=== PATIENT | female | born 1995 | race Caucasian/White ===

== ENCOUNTER → 2021-10-28 13:06 | Outpatient (CLI) | payer OTHER, MEDICAID, SELFPAY ==
--- NOTE | 2021-10-28 | DI.US.S_ITS ---
PROCEDURE: US PELVIC COMPLETE INDICATIONS: DYSMENORRHEA TECHNIQUE: Real-time scanning was performed of the pelvic organs, with image documentation. Additional endovaginal scanning was necessary due to incomplete visualization of the adnexal and endometrial structures by transabdominal scanning. COMPARISON: None. FINDINGS: Uterus: Uterus is anteverted and normal in size at 7.7 x 4.3 x 2.8 cm. The myometrium is homogeneous. The endometrium measures 0.7 mm combined thickness. Ovaries: The right ovary measures 2.8 x 2.6 x 1.3 cm, The left ovary measures 2.8 x 1.5 x 1.1 cm,. The ovaries have a normal sonographic appearance. Less than 12 follicles can be seen in each ovary. No adnexal masses are seen. There is irregular urinary bladder thickening incidentally noted without vascularity Other: No pathologic free abdominal or pelvic fluid. IMPRESSION: 1. Unremarkable ultrasound the pelvis 2. Incidental irregular thickening of the urinary bladder wall. Consider further imaging workup with contrast CT pelvis or dedicated ultrasound. Approved by: Chuck Nunn M.D. on 10/28/2021 at 16:18
== END ==
PROVIDERS: PCP Physician Assistant; Referring Provider Physician Assistant; Visit Provider Physician Assistant
DX: N94.6 Dysmenorrhea, unspecified (principal)
CPT/HCPCS: 76830; 76856

== ENCOUNTER 2021-11-11 19:14 | Emergency (ER) | payer OTHER, MEDICAID, SELFPAY ==
[2021-11-11 19:26] VITALS: BP 120/65; PULSE 83; RESP 16; TEMP 36.9; O2SAT 99; BMI 26.5
[2021-11-11 23:09] LABS: Add Manual Diff / Slide Review NO; Basophils Absolute Auto 0 /uL (0-100); Basophils Percent Auto 0.7 % (0-2); Eosinophils Absolute Auto 100 /uL (0-450); Eosinophils Percent Auto 1.4 % (2-4); Hematocrit 40.8 % (36-46); Hemoglobin 14.6 g/dL (12.0-16.0); Lymphocytes Absolute Auto 2700 /uL (1100-4500); Lymphocytes Percent Auto 47.5 % (25-40); Mean Corpuscular HGB Conc 35.7 % (30-36); Mean Corpuscular Hemoglobin 31.4 PG (26-34); Mean Corpuscular Volume 87.8 fL (80-100); Monocytes Absolute Auto 500 /uL (0-900); Monocytes Percent Auto 8.4 % (3-14); Neutrophils Absolute Auto 2400 /uL (1500-7000); Platelet Count 174 X10^3/uL (150-400); Red Blood Cell Count 4.65 X10^6/uL (4.0-5.2); White Blood Cell Count 5.7 X10^3/uL (4.5-11.0)
[2021-11-11 23:18] LABS: Alanine Aminotransferase 12 IU/L (<35); Albumin 4.5 g/dL (3.5-5.0); Albumin Globulin Ratio 1.6 (1.0-2.8); Alkaline Phosphatase 33 U/L (38-126); Aspartate Aminotransferase 23 IU/L (14-36); BUN Creatinine Ratio 16.1 (6-22); Bilirubin Total 0.7 mg/dL (0.2-1.3); Blood Urea Nitrogen 9 mg/dL (7-17); Calcium 9.3 mg/dL (8.4-10.2); Carbon Dioxide 26 mmol/L (22-32); Chloride 109 mmol/L (98-107); Estimated Glomerular Filt Rate > 60.0 mL/min (>60); Globulin 2.9 g/dL (1.7-4.1); Glucose 95 mg/dL (70-100); HEMOLYSIS 22 (0-50); Lipase 79 U/L (23-300); Sodium 140 mmol/L (137-145); Total Protein 7.4 g/dL (6.3-8.2)
[2021-11-11 23:27] LABS: Bacteria Urine Few (2-10); Culture Indicated Urine Cult Not Indicated; RBC Urine None Seen (0-5/HPF); Squamous Epithelial Cell Urine 1-5 /HPF (0-5/HPF); WBC Urine 0-1/HPF (0-5/HPF)
[2021-11-12] VITALS (9 sets, daily range): BP systolic 95–97; BP diastolic 55–63; PULSE 62–87; RESP 19; O2SAT 76–100
[2021-11-12] MEDS: ACETAMINOPHEN 325 MG TABLET 650 MG PO (02:10)
--- NOTE | 2021-11-12 02:41 | PC.NURSE ---
1350 pt c/o headache, reported to dr. woods, order of tylenol rec'd and provided.
--- NOTE | 2021-11-12 02:42 | ED.GENADULT ---
HPI - General Adult General Chief complaint: Abdominal Pain Stated complaint: STOMACH ISSUES,7DAYS,SENT BY [facility] Time Seen by Provider: 11/12/21 02:42 Source: patient Mode of arrival: Ambulatory History of Present Illness HPI narrative: 25-year-old woman with long history of GI issues and control issues. She recently had an issue with NuvaRing and while she was working through this issue with her doctor she had some abnormal bleeding. She feels that that seems to be normalizing. She notes that she frequently has mild abdominal pain and last year had a complete gastrointestinal workup including upper and lower endoscopies that showed some inflammation but no obvious abnormalities. She is gluten intolerance avoids lactose and has been begin for 5 years. She is having regular bowel movements, no fevers or vomiting. Over the last 4 days she has had increasing lower abdominal/pelvic pain. She does not describe any vaginal discharge or dysuria. Approximately 2 weeks ago she was concerned that she had a bladder infection took 4 doses of nitrofurantoin felt that the urinary symptoms were improving but GI symptoms were getting worse. It turns out that nitrofurantoin has lactose components in it. Pelvic ultrasound was done on October 28 that was unremarkable with normal ovaries. Related Data Home Medications Medication Instructions Recorded Confirmed dextroamphetamine-amphetamine 30 30 mg PO DAILY 11/11/21 11/11/21 mg tablet etonogestrel 0.12 mg-ethinyl vag ring VAGINAL 11/11/21 estradiol 0.015 mg/24 hr vaginal ring (EluRyng) Previous Rx's Medication Instructions Recorded dicyclomine 10 mg capsule 10 mg PO TID PRN #20 cap 11/12/21 Allergies Allergy/AdvReac Type Severity Reaction Status Date / Time gluten Allergy Abdominal Verified 11/11/21 19:31 Pain lactose Allergy Abdominal Verified 11/11/21 19:31 Pain Patient History Social History Smoking Status: Never smoker Smoking Status: Never smoker alcohol intake frequency: other Substance Use Type: does not use Exam Initial Vital Signs Initial Vital Signs: Vital Signs Temperature 98.4 F 11/11/21 19:26 Pulse Rate 83 11/11/21 19:26 Respiratory Rate 16 11/11/21 19:26 Blood Pressure 120/65 11/11/21 19:26 Pulse Oximetry 99 11/11/21 19:26 Course Orders Ordered: ED Orders 11/11/21 22:49 Complete Blood Count AUTO DIFF Stat Comprehensive Metabolic Panel Stat Lipase Stat 11/11/21 23:11 Urine Microscopic Stat 11/12/21 03:13 CT abdomen pelvis w con Stat Acetaminophen (Acetaminophen 325 Mg Tablet) 650 mg PO Q4HR PRN PRN Reason: Fever/Mild Pain (1-3) Last Admin: 11/12/21 02:10 Dose: 650 mg Documented by: JAYLEN Sodium Chloride (Normal Saline 0.9%) 1,000 mls @ 1,000 mls/hr IV BOLUS ONE Stop: 11/12/21 04:07 Last Admin: 11/12/21 03:10 Dose: 1,000 mls/hr Documented by: CIRILOONESancho Vital Signs Vital signs: Vital Signs - 8 hr 11/12/21 01:55 11/12/21 01:56 11/12/21 02:00 Pulse Rate 82 87 80 Blood Pressure 96/63 Pulse Oximetry 99 98 97 11/12/21 02:30 Pulse Rate 68 Blood Pressure Pulse Oximetry 97 Medical Decision Making Lab Data Result diagrams: 11/11/21 22:49 11/11/21 22:49 Labs: Lab Results 11/11/21 11/11/21 11/11/21 Range/Units 22:49 22:49 23:11 WBC 5.7 (4.5-11.0) X10^3/uL RBC 4.65 (4.0-5.2) X10^6/uL Hgb 14.6 (12.0-16.0) g/dL Hct 40.8 (36-46) % MCV 87.8 (80-100) fL MCH 31.4 (26-34) PG MCHC 35.7 (30-36) % RDW 13.0 (11.6-14.8) % Plt Count 174 (150-400) X10^3/uL Neut % (Auto) 42.0 L (50-75) % Lymph % (Auto) 47.5 H (25-40) % Noble % (Auto) 8.4 (3-14) % Eos % (Auto) 1.4 L (2-4) % Baso % (Auto) 0.7 (0-2) % Neut # (Auto) 2400 (8775-7335) /uL Lymph # (Auto) 2700 (7873-9139) /uL Noble # (Auto) 500 (0-900) /uL Eos # (Auto) 100 (0-450) /uL Baso # (Auto) 0 (0-100) /uL Sodium 140 (137-145) mmol/L Potassium 4.0 (3.4-5.1) mmol/L Chloride 109 H (98-107) mmol/L Carbon Dioxide 26 (22-32) mmol/L BUN 9 (7-17) mg/dL Creatinine 0.56 (0.52-1.04) mg/dL Estimated GFR > 60.0 (>60) mL/min BUN/Creatinine Ratio 16.1 (6-22) Glucose 95 (70-100) mg/dL Calcium 9.3 (8.4-10.2) mg/dL Total Bilirubin 0.7 (0.2-1.3) mg/dL AST 23 (14-36) IU/L ALT 12 (<35) IU/L Alkaline Phosphatase 33 L (38-126) U/L Total Protein 7.4 (6.3-8.2) g/dL Albumin 4.5 (3.5-5.0) g/dL Globulin 2.9 (1.7-4.1) g/dL Albumin/Globulin Ratio 1.6 (1.0-2.8) Lipase 79 (23-300) U/L Urine RBC None seen (0-5/HPF) Urine WBC 0-1/hpf (0-5/HPF) Ur Squamous Epith Cells 1-5 /hpf (0-5/HPF) Urine Bacteria Few (2-10) H (None) Ur Culture Indicated? Cult not indicated Point of Care Testing Test Results Negative Urine Dip Bedside Urine Glucose Negative Bedside Urine Bilirubin - Negative Bedside Urine Ketone - Negative Urine Specific [place] 1.010 Bedside Urine Occult Blood - Negative Bedside Urine pH 8.5 Bedside Urine Protein +/- 15 Bedside Urine Urobilinogen +/- 1mg Bedside Urine Nitrite - Negative Bedside Urine Leukocytes - Negative Esterase Point of care testing: Point of Care Testing Test Results Negative Urine Dip Bedside Urine Glucose Negative Bedside Urine Bilirubin - Negative Bedside Urine Ketone - Negative Urine Specific [place] 1.010 Bedside Urine Occult Blood - Negative Bedside Urine pH 8.5 Bedside Urine Protein +/- 15 Bedside Urine Urobilinogen +/- 1mg Bedside Urine Nitrite - Negative Bedside Urine Leukocytes - Negative Esterase Imaging Data Pelvic ultrasound: Radiologist's Impression: FINDINGS:? ?? Uterus:? Uterus is anteverted and normal in size at 7.7 x 4.3 x 2.8 cm. The myometrium is homogeneous. ? The endometrium measures 0.7 mm combined thickness.? ? Ovaries:? The right ovary measures 2.8 x 2.6 x 1.3 cm, The left ovary measures 2.8 x 1.5 x 1.1 cm,. The ovaries have a normal sonographic appearance. Less than 12 follicles can be seen in each ovary.? No adnexal masses are seen. ? There is irregular urinary bladder thickening incidentally noted without vascularity ? Other:? No pathologic free abdominal or pelvic fluid. ? ? IMPRESSION:? ? 1. Unremarkable ultrasound the pelvis 2. Incidental irregular thickening of the urinary bladder wall.? Consider further imaging workup with contrast CT pelvis or dedicated ultrasound.? Approved by: Chuck Nunn M.D. on 10/28/2021 at 16:18? CT scan - abdomen/pelvis: Radiologist's Impression: No evidence of colitis, diverticulitis, bowel obstruction, obstructive uropathy, acute appendicitis. No CT findings to explain pelvic pain. Nyla Pozo MD [facility] Narrative Medical decision making narrative: 25-year-old woman with low abdominal/pelvic pain that is been getting worse over the last 4 days. She has a long history of similar abdominal complaints this seems like it is worse. Last year she had both upper and lower endoscopies with no significant findings. She notes that she has been increasingly stressed recently with finals coming up next week. She does note that she has had similar findings even when she isn't stressed. She has never discussed possibility of irritable bowel disease with her doctors but has done a bit of reading about this online and understands that it is a management issue rather than a treatment issue. She has never tried Bentyl but is willing to try that and see if it influences her bowel spasm. At this time with the entire workup a year ago being negative, blood work CT and ultrasound all unremarkable now I think that irritable bowel is a very reasonable diagnosis to consider. I asked her to talk with her primary care doctor about this and she may benefit with additional help in managing stress levels. She is safe for home discharge Discharge Plan Departure Patient Disposition: Home Clinical Impression: Abdominal pain, Irritable bowel syndrome (IBS) Instructions: DI for Abdominal Pain-Adult, DI for Irritable Bowel Syndrome Activity Restrictions/Additional Instructions: Thank you for coming in today I appreciate your patience with the long wait today. Your workup was very reassuring. Your blood work was entirely normal, the pelvic ultrasound that you had done on October 28 was normal. We did a CT scan of the abdomen and pelvis today that also did not reveal any significant findings. At this time, knowing that you have had both upper and lower endoscopies and chronic issues with your abdomen the possibility of irritable bowel syndrome seems a bit more likely. I am going to suggest that you try the dicyclomine, this can help relax spasm in the got. If it is helpful you can continue using it. If it is not, please do not use a medication that is not helping. I would encourage you to schedule an appointment with your primary care physician. I am enclosing copies of your blood work as well as a CT scan done today for you to share with your primary care doctor. If symptoms worsen please feel free to return to the emergency department I hope you Fernie all of your finals next week! Prescriptions: New dicyclomine 10 mg capsule 10 mg PO TID PRN (Reason: abdominal discomfort) Qty: 20 0RF No Action dextroamphetamine-amphetamine 30 mg tablet 30 mg PO DAILY 0RF Label Comments: TAKE 1/2 TO 1 (ONE-HALF TO ONE) TABLET BY MOUTH ONCE DAILY FOR 30 DAYS etonogestrel-ethinyl estradiol [EluRyng] 0.12-0.015 mg/24 hr ring VAGINAL 0RF Label Comments: INSERT ONE RING VAGINALLY AND LEAVE IN PLACE FOR 3 CONSECUTIVE WEEKS, THEN REMOVE FOR 1 WEEK. INSERT NEW RING 7 DAYS AFTER THE LAST WAS REMOVED Referrals: Opal Layton PA-C [Primary Care Provider] -
--- NOTE | 2021-11-12 02:54 | PC.NURSE ---
pt asked for 1st iv site to be removed, states it is uncomfortable.
[2021-11-12] MEDS: SODIUM CHLORIDE 0.9% 1,000 ML 1000 ML IV (03:10)
--- NOTE | 2021-11-12 03:13 | DI.CT.S_ITS ---
PROCEDURE: CT ABDOMEN PELVIS W CON INDICATIONS: pelvic pain TECHNIQUE: After the administration of IV contrast, axial sections were acquired from the lung bases to the pubic symphysis. Coronal and sagittal reformats were performed. For radiation dose reduction, the following was used: automated exposure control, adjustment of mA and/or kV according to patient size. COMPARISON: [facility], , PELVIC COMPLETE, 10/28/2021, 13:14. FINDINGS: Image quality: Excellent. Lung bases: Left upper lobe ground-glass pulmonary nodule measuring 0.4 cm, (3/7). There may be an adjacent ground-glass pulmonary nodule. This could be infectious/inflammatory in origin. No pleural effusion. Heart: Heart size is normal. Bilateral breast implants. ABDOMEN: Liver: No focal lesion. Gallbladder: Contracted. Biliary ducts: No dilatation. Pancreas: No peripancreatic fluid collection. Spleen: No splenomegaly. Adrenal Glands: No nodule. Kidneys and Ureters: No hydronephrosis. Stomach and Bowel: Stomach, small bowel loops, and colon are unremarkable. Normal appendix, (2/64). Somewhat prominent stool in the colon. Peritoneum: No abnormal intraperitoneal fluid. No free air. Ventral Wall: No hernia. Abdominal Nodes: No retroperitoneal or mesenteric adenopathy by size criteria. Vessels: Aorta and inferior vena cava are normal in size. PELVIS: Pelvic Organs: Uterus is vertically oriented. There is a contraceptive ring within the vagina. Trace free fluid in the pelvic cul-de-sac. Bladder: No stones. Pelvic Nodes: No enlarged lymph nodes. Miscellaneous: No inguinal hernias are seen. Bones: No suspicious lesion. IMPRESSION: The source for abdominal pain is not identified. No significant discrepancy with the overnight preliminary interpretation. Tiny ground-glass pulmonary nodule noted. Dictated by: Alessandro Roblero M.D. on 11/12/2021 at 7:35 Approved by: Alessandro Roblero M.D. on 11/12/2021 at 7:45
== END 2021-11-12 04:32 | disposition home or self-care (01) ==
PROVIDERS: Emergency Provider Emergency Medicine; PCP Physician Assistant
DX: R10.2 Pelvic and perineal pain (principal); K58.9 Irritable bowel syndrome, unspecified
CPT/HCPCS: 36415; 74177; 80053; 81003; 81015; 81025; 83690; 85025; 99284; Q9967

== ENCOUNTER → 2022-02-25 13:24 | Outpatient (CLI) | payer OTHER, MEDICAID, SELFPAY ==
--- NOTE | 2022-02-25 | DI.RAD.S_ITS ---
PROCEDURE: XR SHOULDER LT MIN 2V INDICATIONS: LEFT SHOULDER PAIN TECHNIQUE: 3 views of the shoulder were acquired. COMPARISON: None. FINDINGS: Bones: No fractures or dislocations. No suspicious bony lesions. Visualized ribs appear intact. Soft tissues: No suspicious soft tissue calcifications. IMPRESSION: Normal left shoulder Dictated by: Diogo Shah M.D. on 02/25/2022 at 15:22 Approved by: Diogo Shah M.D. on 02/25/2022 at 15:23
== END ==
PROVIDERS: PCP Physician Assistant; Referring Provider Physician Assistant; Visit Provider Physician Assistant
DX: M25.512 Pain in left shoulder (principal)
CPT/HCPCS: 73030

== ENCOUNTER → 2023-07-13 09:25 | Outpatient (CLI) | payer OTHER, MEDICAID, SELFPAY ==
--- NOTE | 2023-07-13 | DI.CT.S_ITS ---
PROCEDURE: CT ABDOMEN without and with IV contrast INDICATIONS: Irregular menstruation / R/O PCOS TECHNIQUE: Noncontrast 3 mm thick sections acquired from the diaphragms to the iliac crests. After the administration of intravenous contrast, 3 mm thick venous-phase and 15-minute delayed images acquired from the diaphragms to the iliac crests. For radiation dose reduction, the following was used: automated exposure control, adjustment of mA and/or kV according to patient size. COMPARISON: [facility], CT, CT ABDOMEN PELVIS W CON, 11/12/2021, 3:19. [facility], US, US PELVIC COMPLETE, 07/13/2023, 9:35. FINDINGS: Image quality: Excellent. Lung bases: Lung bases are clear. Breast implants. Heart size is normal. Solid organs: Liver is normal in size and enhancement. Gallbladder is unremarkable. Biliary system is non dilated. Pancreas enhances normally. No adrenal nodule. Spleen is normal in size and enhancement. Small splenule. Kidneys are normal in size and enhancement. No hydronephrosis or nephrolithiasis. No upper urinary tract filling defect within the visualized portions. Peritoneum and bowel: Unenhanced bowel loops are normal in caliber and wall thickness. Somewhat prominent stool in the colon. No free fluid or air. Nodes and vessels: No retroperitoneal or mesenteric adenopathy by size criteria. Aorta and inferior vena cava are normal in size. Miscellaneous: No ventral hernias. Bones: No suspicious bony lesions. No vertebral body compression fractures. IMPRESSION: 1. No mass or adrenal nodule. No adenopathy. 2. Somewhat prominent stool in the colon. Dictated by: Alessandro Roblero M.D. on 07/13/2023 at 16:03 Approved by: Alessandro Roblero M.D. on 07/13/2023 at 16:09
--- NOTE | 2023-07-13 | DI.US.S_ITS ---
PROCEDURE: US PELVIC COMPLETE INDICATIONS: IRREGULAR PERIODS - POLYCYSTIC OVARIAN DISORDER TECHNIQUE: Real-time scanning was performed of the pelvic organs, with image documentation. Additional endovaginal scanning was necessary due to incomplete visualization of the adnexal and endometrial structures by transabdominal scanning. COMPARISON: [facility], US, US PELVIC COMPLETE, 10/28/2021, 13:14. FINDINGS: Uterus: Uterus is anteverted and normal in size at 6.6 x 3.0 x 3.4 cm. The myometrium is homogeneous. The endometrium measures 2 mm combined thickness. Nabothian cyst is present. Ovaries: The right ovary measures 3.9 x 2.2 x 2.1 cm, with a calculated ovarian volume of 9.8 cc. The left ovary not well visualized and measures approximately 3.2 x 1.7 x 2.3 cm, with a calculated ovarian volume of 6.6 cc. The right ovary has a normal sonographic appearance. There are greater than 12 follicles seen in the right ovary. No adnexal masses are seen. Other: Free fluid is seen in the left adnexa. IMPRESSION: Increased right ovarian volume with greater than 12 follicles visualized may reflect polycystic ovarian syndrome. Left ovary is not well visualized. We strive to produce accurate, complete, and clear reports of imaging services. To assist us in improving patient care, this report was composed using standard report templates and voice recognition software. Therefore, it may contain abnormal punctuation, insertions and/or omissions. Occasional wrong-word or sound-alike substitutions may occur. Though we review the report and make efforts to correct it, we do recommend that the report be read carefully in proper context to recognize any text inaccuracies. Dictated by: Bethany Jacques M.D. on 07/13/2023 at 12:11 Approved by: Bethany Jacques M.D. on 07/13/2023 at 12:20
== END ==
PROVIDERS: PCP Nurse Practitioner Family; Referring Provider Nurse Practitioner Family; Visit Provider Nurse Practitioner Family
DX: N92.6 Irregular menstruation, unspecified (principal)
CPT/HCPCS: 74170; 76830; 76856; 93976; Q9967

== ENCOUNTER → 2025-04-09 12:31 | Outpatient (CLI) | payer OTHER, SELFPAY ==
--- NOTE | 2025-04-09 12:34 | DI.MRI.S_ITS ---
PROCEDURE: MR KNEE LT WO CON INDICATIONS: pain in left knee TECHNIQUE: Noncontrast sagittal PD fast spin echo and T2 fast spin echo with fat saturation, sagittal 3-D FLASH with fat saturation; coronal T1 spin echo and PD fast spin echo with fat saturation, and axial PD fast spin echo with fat saturation through the knee. COMPARISON: None. FINDINGS: Image quality: Excellent. Menisci: Mild increased T2 weighted signal in the medial aspect of the anterior horn of the lateral meniscus into the anterior meniscal root ligament some of which related to degenerative change versus oblique tear exiting to the superior surface. Mild Posterior meniscocapsular separation. The anterior and posterior horns of the medial meniscus are normal in size and signal. Cruciate ligaments: The anterior and posterior cruciate ligaments appear intact. Medial structures: The medial collateral ligament appears intact. The semimembranosus tendon insertion is intact. Visualized portions of the pes anserinus tendons appear normal. No abnormal bursal fluid. Lateral structures: The lateral collateral ligament, long and short heads of the biceps femoris tendon appear intact. The popliteus tendon appears normal. Iliotibial band appears normal. Anterior structures: Mild increased T2 weighted signal and thickening of the distal quadriceps tendon mild tendinopathy without tear. Patellar ligament is normal. Patellar alignment is normal. No femoral trochlear dysplasia or ventral trochlear prominence. No edema in the infrapatellar fat pad. Bones and cartilage: No bone marrow contusions or fractures. The cartilage of the medial and lateral femorotibial compartments, as well as the patellofemoral compartment, appears normal in thickness without focal cartilage defect. Joint space: Trace knee joint effusion. No popliteal cyst. IMPRESSION: Mild signal changes in the anterior horn of the lateral meniscus into the anterior meniscal root ligament. Mild posterior meniscocapsular separation. Mild tendinopathy distal quadriceps tendon. Dictated by: Mehran Strickland M.D. on 04/10/2025 at 10:47 Approved by: Mehran Strickland M.D. on 04/10/2025 at 10:56
== END ==
PROVIDERS: PCP Nurse Practitioner Family; Referring Provider Nurse Practitioner Family; Visit Provider Nurse Practitioner Family
DX: M25.562 Pain in left knee (principal)
CPT/HCPCS: 73721

== ENCOUNTER → 2025-04-09 13:00 | Outpatient (CLI) | payer OTHER, SELFPAY | PROVIDERS: PCP Nurse Practitioner Family; Referring Provider Nurse Practitioner Family; Visit Provider Nurse Practitioner Family | DX: R00.2 Palpitations (principal); M25.562 Pain in left knee | CPT/HCPCS: 73721; 93242 ==